=== PATIENT | male | born 1940 | race Caucasian/White ===

== ENCOUNTER → 2016-11-19 | Outpatient (CLI) | payer MEDICARE ==
[~2016-11-19] MED LIST: /PRAV20TA PO; ACET65TA PO; ASCO25TA PO; ASPI81TA PO; ASPI81TA45 OR; ASPI81TA7 PO; ASPI81TA85 PO; BENA25TA4 PO; BENTYL PO; BUDE3CAP PO; CARA1SUS PO; CIPR500T4 PO; CIPR500T89 PO; DYAZCA PO; FERR325T3 PO; FLAG500T PO; IRON PO; LISI5TAB PO; LISIPOW PO; LOPR50TA PO; MAXI0.1S3 OU; MAXZTA PO; METR500IV PO; MIRA255PW PO; MIRA33504 PO; MULTLIQ7 PO; MYLI40DR PO; OMEP40CA2 PO; OMEPPOW18 PO; OSCAL D PO; OXYC-208 PO; PENT500C4 PO; PRAV10TA4 OR; PRAV1TAB39 PO; PRAVASTATIN PO; PRED1TAB32 PO; PRED20TAB PO; PRED50TA2 PO; PRIL20CA PO; PRIL40CA PO; REMICADE IV; SIME80TA PO; TRIA37.53 PO; TRIA75TA PO; TYLE325T5 PO; VITA100087 PO; VITA500C24 PO; ZEST5TAB PO; [UNRECOGNIZED DRUG - OTHER] PO
== END ==
LOC: M SMT 10:38
PROVIDERS: ATTEND Nurse Practitioner Women's Health
DX: Z85.46 Personal history of malignant neoplasm of prostate (principal)

== ENCOUNTER → 2016-12-03 | Outpatient (CLI) | payer MEDICARE ==
--- NOTE | 2016-12-03 14:38 | REP ---
Whole body radionuclide bone scan: History: Elevated liver function studies. History of prostate carcinoma. Comparison whole body bone scan is from January 28, 2013. Technique: 21.8 mCi technetium 99m MDP is injected and standard whole body imaging is acquired. Scintigraphic findings: There is a normal distribution of skeletal tracer with uptake in bilateral kidneys and in the urinary bladder. There is arthritic uptake in the left mid foot joints. This is a little more prominent but not new when compared with the prior 2013 bone scan. The prior bone scan showed osteoarthritic facet uptake in the cervical spine and degenerative uptake at the thoracolumbar junction which are both resolved scintigraphically. There was increased uptake in the right manubrial clavicular articulations. This is also resolved. There is no evidence of skeletal metastatic disease. Impression: No evidence of bony metastasis. Signed by Omero Joseph MD 12/03/2016 04:25 P
== END ==
LOC: M RAD 10:23
PROVIDERS: ATTEND Nurse Practitioner Women's Health
DX: Z85.46 Personal history of malignant neoplasm of prostate (principal)
CPT/HCPCS: 78306; A9503

== ENCOUNTER → 2016-12-06 | Outpatient (CLI) | payer MEDICARE ==
[~2016-12-06] MED LIST changes: +ISOVUE-370 76% 100ML VIAL (Q9967) As Ordered ONE
--- NOTE | 2016-12-06 16:27 | REP ---
Chest two views HISTORY: Neoplasm Comparison: 02/19/2013 The lungs are clear. The heart is normal in size. The pulmonary vasculature is normal in appearance. The bony structure is intact. IMPRESSION: No acute disease. Signed by Jack Wilkinson MD 12/06/2016 04:18 P
--- NOTE | 2016-12-06 17:58 | REP ---
CT abdomen pelvis multiphasic scanning: Scanning is initially performed without IV contrast. This is followed by biphasic IV contrast enhanced scanning for. There is no bowel contrast. Comparison is 02/20/2016. The visualized lung paulson are clear. The hepatic parenchyma, pancreas and spleen are normal size, homogeneous and unremarkable on all phases of the study. There is a small gallbladder calculus in the gallbladder neck. There is no gallbladder distension or biliary duct dilatation. This is unchanged from the prior study. The adrenals are unremarkable. There are multiple parapelvic cysts in the kidneys bilaterally, unchanged. There is no hydronephrosis. No renal masses are identified. The abdominal aorta is unremarkable. There is no retroperitoneal/periaortic adenopathy. There is marked diastases of the rectus abdominus with mild herniation of omentum and bowel as previously. There are surgical clips in the abdominal right lower quadrant, as previously, this patient with history of small bowel surgery. There is no bowel distension or obstruction. There is no ascites. There is no mesenteric adenopathy. Pelvis: The pelvic bowel loops are unremarkable. There is no ascites or adenopathy. The bladder is unremarkable. The seminal vesicles are unremarkable. A few prostatic of this are incidentally noted. There is no ascites. There are no lytic, blastic or destructive skeletal changes of the lumbar spine or pelvis. Impression: No lymphadenopathy, metastatic disease or ascites. There is a fixed hiatal hernia, unchanged. Large broad ventral hernia, unchanged. Cholelithiasis, unchanged. Surgical clips in the abdominal right lower quadrant, unchanged. Signed by Mark Srinivasan MD 12/06/2016 05:49 P
== END ==
LOC: M RAD 15:56
PROVIDERS: ATTEND Nurse Practitioner Women's Health
DX: K43.9 Ventral hernia without obstruction or gangrene (principal); K80.20 Calculus of gallbladder without cholecystitis without obstruction; R97.21 Rising PSA following treatment for malignant neoplasm of prostate; Z85.46 Personal history of malignant neoplasm of prostate
CPT/HCPCS: 71020; 74178; Q9967

== ENCOUNTER → 2016-12-31 | Outpatient (CLI) | payer MEDICARE ==
[~2016-12-31] MED LIST changes: -ISOVUE-370 76% 100ML VIAL (Q9967) As Ordered ONE
== END ==
LOC: M SMT 09:23
PROVIDERS: ATTEND Urology
DX: Z85.46 Personal history of malignant neoplasm of prostate (principal)

== ENCOUNTER → 2017-04-08 | Outpatient (CLI) | payer MEDICARE ==
[2017-04-08 14:00] LABS: MEAN CORPUSCULAR HEMOGLOBIN 30.3 pg (27.0-33.0); MEAN CORPUSCULAR HGB CONC 33.1 g/dl (32.0-36.5); MEAN CORPUSCULAR VOLUME 91.4 fl (80.0-96.0); RED CELL DISTRIBUTION WIDTH 13.8 % (11.5-14.5); WHITE BLOOD COUNT 7.1 K/mm3 (4.0-10.0)
[2017-04-08 14:17] LABS: ALBUMIN 3.7 GM/DL (3.2-5.2); ALBUMIN/GLOBULIN RATIO 1.28 (1.00-1.93); ALKALINE PHOSPHATASE 75 U/L (45-117); ALT/SGPT 34 U/L (12-78); ANION GAP 5 MEQ/L (8-16); AST/SGOT 23 U/L (15-37); BILIRUBIN,TOTAL 0.3 MG/DL (0.2-1.0); BLOOD UREA NITROGEN 22 MG/DL (7-18); CALCIUM LEVEL 8.9 MG/DL (8.8-10.2); CARBON DIOXIDE LEVEL 31 MEQ/L (21-32); CHLORIDE LEVEL 105 MEQ/L (98-107); CREATININE FOR GFR 0.86 MG/DL (0.70-1.30); GLOMERULAR FILTRATION RATE > 60.0 (>42); GLUCOSE, FASTING 99 MG/DL (83-110); POTASSIUM SERUM 4.8 MEQ/L (3.5-5.1); SODIUM LEVEL 141 MEQ/L (136-145); TOTAL PROTEIN 6.6 GM/DL (6.4-8.2)
== END ==
LOC: M SMT 09:08
PROVIDERS: ATTEND Physician Assistant Medical
DX: K50.00 Crohn's disease of small intestine without complications (principal)

== ENCOUNTER → 2017-06-27 | Outpatient (CLI) | payer MEDICARE | LOC: M SMT 13:21 | PROVIDERS: ATTEND Urology | DX: Z85.46 Personal history of malignant neoplasm of prostate (principal) ==

== ENCOUNTER → 2018-01-13 | Outpatient (CLI) | payer MEDICARE ==
[2018-01-13 14:24] LABS: PROSTATIC SPECIFIC AG MONITOR 0.03 NG/ML (< 4.0)
== END ==
LOC: M SMT 09:54
DX: Z85.46 Personal history of malignant neoplasm of prostate (principal)
CPT/HCPCS: 84153

== ENCOUNTER → 2018-04-07 | Outpatient (CLI) | payer OTHER ==
[2018-04-07 12:32] LABS: HEMATOCRIT 43.8 % (42.0-52.0); HEMOGLOBIN 14.6 g/dl (13.5-17.5); MEAN CORPUSCULAR HEMOGLOBIN 29.5 pg (27.0-33.0); MEAN CORPUSCULAR HGB CONC 33.3 g/dl (32.0-36.5); MEAN CORPUSCULAR VOLUME 88.5 fl (80.0-96.0); PLATELET COUNT, AUTOMATED 146 10^3/uL (150-450); RED BLOOD COUNT 4.95 10^6/uL (4.30-6.10); RED CELL DISTRIBUTION WIDTH 13.9 % (11.5-14.5)
[2018-04-07 13:40] LABS: ALBUMIN 3.8 GM/DL (3.2-5.2); ALBUMIN/GLOBULIN RATIO 1.15 (1.00-1.93); ALKALINE PHOSPHATASE 86 U/L (45-117); ALT/SGPT 35 U/L (12-78); ANION GAP 8 MEQ/L (8-16); AST/SGOT 39 U/L (7-37); BILIRUBIN,TOTAL 0.5 MG/DL (0.2-1.0); BLOOD UREA NITROGEN 18 MG/DL (7-18); CALCIUM LEVEL 9.3 MG/DL (8.8-10.2); CARBON DIOXIDE LEVEL 27 MEQ/L (21-32); CHLORIDE LEVEL 108 MEQ/L (98-107); CREATININE FOR GFR 0.92 MG/DL (0.70-1.30); GLOMERULAR FILTRATION RATE > 60.0 (>42); GLUCOSE, FASTING 93 MG/DL (70-100); SODIUM LEVEL 143 MEQ/L (136-145); TOTAL PROTEIN 7.1 GM/DL (6.4-8.2)
[2018-04-08 09:43] LABS: HEPATITIS B SURFACE ANTIGEN NEGATIVE (NEGATIVE)
[2018-04-09 14:13] LABS: QUANTIFERON GOLD TB Negative (Negative); TB Test (QFT) Antigen 0.04 IU/mL (.); TB Test (QFT) Antigen Minus Ni <0.01 IU/mL (.); TB Test (QFT) Mitogen 6.61 IU/mL (.); TB Test (QFT) Nil 0.05 IU/mL (.)
== END ==
LOC: M SMT 09:13
DX: K50.00 Crohn's disease of small intestine without complications (principal)
CPT/HCPCS: 80053

== ENCOUNTER → 2018-05-11 | Outpatient (CLI) | payer MEDICARE ==
[2018-05-11 14:26] LABS: HEMATOCRIT 41.6 % (42.0-52.0); HEMOGLOBIN 13.8 g/dl (13.5-17.5); MEAN CORPUSCULAR HEMOGLOBIN 29.6 pg (27.0-33.0); MEAN CORPUSCULAR HGB CONC 33.2 g/dl (32.0-36.5); MEAN CORPUSCULAR VOLUME 89.1 fl (80.0-96.0); PLATELET COUNT, AUTOMATED 151 10^3/uL (150-450); RED BLOOD COUNT 4.67 10^6/uL (4.30-6.10); RED CELL DISTRIBUTION WIDTH 13.9 % (11.5-14.5); WHITE BLOOD COUNT 7.9 10^3/uL (4.0-10.0)
[2018-05-11 15:40] LABS: ALBUMIN 3.7 GM/DL (3.2-5.2); ALBUMIN/GLOBULIN RATIO 1.23 (1.00-1.93); ALKALINE PHOSPHATASE 87 U/L (45-117); ALT/SGPT 32 U/L (12-78); AST/SGOT 23 U/L (7-37); BILIRUBIN,DIRECT 0.1 MG/DL (0.0-0.2); BILIRUBIN,TOTAL 0.4 MG/DL (0.2-1.0); TOTAL PROTEIN 6.7 GM/DL (6.4-8.2)
== END ==
LOC: M SMT 11:12
DX: K50.00 Crohn's disease of small intestine without complications (principal)
CPT/HCPCS: 80076

== ENCOUNTER 2018-12-18 06:23 | Day surgery (SDC) | payer MEDICARE ==
[~2018-12-18] VITALS: Ht 165.1 cm; Wt 79.8 kg
[~2018-12-18 06:23] MED LIST changes: +ASPI1TAB PO; +HUMI40KI2 SC; +LISI10TA4 PO; +MULT1TAB10 PO
[2018-12-18] MEDS ORDERED: NS 1,000 ML IV ONE (07:15)
[2018-12-18] MEDS ORDERED: PROPOFOL 200 MG/20 ML VIAL As Ordered ONE (07:16)
[2018-12-18] MEDS ORDERED: LIDOCAINE 2% INJ 100 MG/5 ML SDV (FOR ANES.) As Ordered ONE (07:16)
--- NOTE | 2018-12-18 08:03 | ROOR ---
Patient Name: Neil Elizabeth Procedure Date: 12/18/2018 7:28 AM Date of : 1940 Age: 78 Room: [facility] Gender: Male Note Status: Finalized Procedure: Colonoscopy Indications: High risk colon cancer surveillance: Personal history of colonic polyps, Incidental - Assess therapeutic response to therapy of Crohn's disease of the small bowel (on Humira) Providers: Sung DIEZ MD Referring MD: MARISOL KLEIN DO Requesting Provider: Medicines: Monitored Anesthesia Care Complications: No immediate complications. Procedure: Pre-Anesthesia Assessment: - The heart rate, respiratory rate, oxygen saturations, blood pressure, adequacy of pulmonary ventilation, and response to care were monitored throughout the procedure. The Colonoscope was introduced through the anus and advanced to the ileocolonic anastomosis. The colonoscopy was performed without difficulty. The patient tolerated the procedure well. The quality of the bowel preparation was good. Findings: The perianal and digital rectal examinations were normal. Retroflexion in the right colon was performed. There was evidence of a prior end-to-side colo-colonic anastomosis in the cecum. This was patent and was characterized by healthy appearing mucosa and the presence of no stomal ulceration. The anastomosis was traversed. Multiple medium-mouthed diverticula were found in the sigmoid colon. Internal hemorrhoids were found during retroflexion. The hemorrhoids were medium-sized. Localized mild inflammation characterized by altered vascularity was found at the anus and in the distal rectum. The oumou-terminal ileum appeared normal. Impression: - Patent end-to-side colo-colonic anastomosis, characterized by healthy appearing mucosa and no stomal ulceration. 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 - Mild sigmoid diverticulosis - The colon is otherwise normal. - The end to side portion of the oumou-terminal ileum for >10 cm and blind end at the ileocecal valve was normal. - No specimens collected. Recommendation: - Repeat colonoscopy in 5 years for surveillance. Sung Diez MD Sung DIEZ MD 12/18/2018 8:02:40 AM This report has been signed electronically. Number of Addenda: 0 Note Initiated On: 12/18/2018 7:28 AM Estimated Blood Loss: Estimated blood loss: none.
[2018-12-18 08:16] VITALS: BP 133/80
== END 2018-12-18 08:24 | disposition home or self-care (01) ==
LOC: M OPP 06:23
PROVIDERS: ATTEND Internal Medicine Gastroenterology
DX: Z86.010 Personal history of colon polyps (principal); Z98.0 Intestinal bypass and anastomosis status; K64.8 Other hemorrhoids; K62.7 Radiation proctitis; K57.30 Diverticulosis of large intestine without perforation or abscess without bleeding

== ENCOUNTER → 2019-01-05 | Outpatient (CLI) | payer MEDICARE | LOC: M SMT 09:32 | PROVIDERS: ATTEND Urology | DX: Z85.46 Personal history of malignant neoplasm of prostate (principal) ==

== ENCOUNTER → 2019-04-14 | Outpatient (CLI) | payer MEDICARE ==
[~2019-04-14] MED LIST changes: -/PRAV20TA PO; -ASCO25TA PO; -ASPI1TAB PO; -ASPI81TA PO; +ASPI81TA26 PO; +CHIL1CHW5 PO; +METR1INJ2 PO; -METR500IV PO; -MIRA255PW PO; +POLY1POW4 PO; +VITA1TAB23 PO
[2019-04-14 13:13] LABS: HEMATOCRIT 43.6 % (42.0-52.0); HEMOGLOBIN 14.2 g/dl (13.5-17.5); MEAN CORPUSCULAR HEMOGLOBIN 29.2 pg (27.0-33.0); MEAN CORPUSCULAR HGB CONC 32.6 g/dl (32.0-36.5); MEAN CORPUSCULAR VOLUME 89.7 fl (80.0-96.0); PLATELET COUNT, AUTOMATED 174 10^3/uL (150-450); RED BLOOD COUNT 4.86 10^6/uL (4.30-6.10); WHITE BLOOD COUNT 8.3 10^3/uL (4.0-10.0)
[2019-04-14 13:21] LABS: ALBUMIN 3.6 GM/DL (3.2-5.2); ALT/SGPT 31 U/L (12-78); BILIRUBIN,TOTAL 0.5 MG/DL (0.2-1.0); BLOOD UREA NITROGEN 20 MG/DL (7-18); CALCIUM LEVEL 9.2 MG/DL (8.8-10.2); CARBON DIOXIDE LEVEL 29 MEQ/L (21-32); CHLORIDE LEVEL 109 MEQ/L (98-107); CREATININE FOR GFR 0.88 MG/DL (0.70-1.30); GLOMERULAR FILTRATION RATE > 60.0 (>42); GLUCOSE, FASTING 93 MG/DL (70-100); POTASSIUM SERUM 5.1 MEQ/L (3.5-5.1); SODIUM LEVEL 146 MEQ/L (136-145)
[2019-04-14 13:39] LABS: HEPATITIS B SURFACE ANTIGEN NEGATIVE (NEGATIVE)
== END ==
LOC: M SMT 10:00
PROVIDERS: ATTEND Physician Assistant Medical
DX: K50.00 Crohn's disease of small intestine without complications (principal)

== ENCOUNTER → 2019-07-23 | Outpatient (CLI) | payer MEDICARE | LOC: M SMT 09:08 | PROVIDERS: ATTEND Nurse Practitioner Women's Health | DX: Z85.46 Personal history of malignant neoplasm of prostate (principal) ==

== ENCOUNTER → 2019-08-09 | Outpatient (REF) | payer MEDICARE | LOC: M SFHCPLAZ 13:58 | PROVIDERS: ATTEND Dermatology | DX: L57.0 Actinic keratosis (principal) ==

== ENCOUNTER → 2020-01-25 | Outpatient (CLI) | payer MEDICARE ==
[~2020-01-25] MED LIST changes: +OMEP40CA97 PO
== END ==
LOC: M LAB 09:36
PROVIDERS: ATTEND Nurse Practitioner Women's Health
DX: Z85.46 Personal history of malignant neoplasm of prostate (principal)

== ENCOUNTER → 2020-05-02 | Outpatient (CLI) | payer MEDICARE ==
[2020-05-02 10:27] LABS: HEMATOCRIT 43.3 % (42.0-52.0); HEMOGLOBIN 14.1 g/dl (13.5-17.5); MEAN CORPUSCULAR HEMOGLOBIN 29.2 pg (27.0-33.0); MEAN CORPUSCULAR HGB CONC 32.6 g/dl (32.0-36.5); MEAN CORPUSCULAR VOLUME 89.6 fl (80.0-96.0); PLATELET COUNT, AUTOMATED 168 10^3/uL (150-450); RED BLOOD COUNT 4.83 10^6/uL (4.30-6.10); WHITE BLOOD COUNT 7.2 10^3/uL (4.0-10.0)
[2020-05-02 10:54] LABS: ALBUMIN 3.5 GM/DL (3.2-5.2); ALT/SGPT 30 U/L (12-78); BILIRUBIN,TOTAL 0.5 MG/DL (0.2-1.0); BLOOD UREA NITROGEN 24 MG/DL (7-18); CALCIUM LEVEL 9.4 MG/DL (8.8-10.2); CARBON DIOXIDE LEVEL 29 MEQ/L (21-32); CHLORIDE LEVEL 106 MEQ/L (98-107); CREATININE FOR GFR 0.88 MG/DL (0.70-1.30); GLOMERULAR FILTRATION RATE > 60.0 (>35); GLUCOSE, FASTING 92 MG/DL (70-100); POTASSIUM SERUM 5.1 MEQ/L (3.5-5.1); SODIUM LEVEL 140 MEQ/L (136-145); TOTAL PROTEIN 6.8 GM/DL (6.4-8.2)
[2020-05-03 08:51] LABS: HEPATITIS B SURFACE ANTIGEN NEGATIVE (NEGATIVE)
== END ==
LOC: M LAB 09:38
PROVIDERS: ATTEND Physician Assistant Medical
DX: K50.00 Crohn's disease of small intestine without complications (principal)

== ENCOUNTER → 2020-08-02 | Outpatient (CLI) | payer MEDICARE ==
[~2020-08-02] MED LIST changes: +ASCO250T20 PO; -VITA1TAB23 PO
== END ==
LOC: M LAB 07:40
PROVIDERS: ATTEND Nurse Practitioner Women's Health
DX: Z85.46 Personal history of malignant neoplasm of prostate (principal)

== ENCOUNTER → 2020-10-17 | Outpatient (REF) | payer MEDICARE | LOC: M LAB REF 17:25 | PROVIDERS: ATTEND Dermatology | DX: D04.5 Carcinoma in situ of skin of trunk (principal) ==

== ENCOUNTER → 2020-11-28 | Outpatient (REF) | payer MEDICARE ==
[~2020-11-28] MED LIST changes: +LISI10TA22 PO; -LISI10TA4 PO
== END ==
LOC: M LAB REF 14:06
PROVIDERS: ATTEND Dermatology
DX: L90.5 Scar conditions and fibrosis of skin (principal); L57.8 Other skin changes due to chronic exposure to nonionizing radiation

== ENCOUNTER → 2021-01-30 | Outpatient (CLI) | payer MEDICARE | LOC: M LAB 07:24 | PROVIDERS: ATTEND Nurse Practitioner Women's Health | DX: Z85.46 Personal history of malignant neoplasm of prostate (principal) ==

== ENCOUNTER → 2021-05-14 | Outpatient (CLI) | payer MEDICARE ==
[~2021-05-14] MED LIST changes: +OMEP40CA4 PO; -OMEP40CA97 PO
== END ==
LOC: M LAB 07:24
PROVIDERS: ATTEND Physician Assistant Medical
DX: K50.00 Crohn's disease of small intestine without complications (principal)

== ENCOUNTER → 2021-08-06 | Outpatient (CLI) | payer MEDICARE | LOC: M LAB 07:14 | PROVIDERS: ATTEND Nurse Practitioner Women's Health | DX: Z85.46 Personal history of malignant neoplasm of prostate (principal) ==

== ENCOUNTER → 2022-02-06 | Outpatient (CLI) | payer MEDICARE | LOC: M LAB 06:55 | PROVIDERS: ATTEND Nurse Practitioner Women's Health | DX: Z85.46 Personal history of malignant neoplasm of prostate (principal) ==

== ENCOUNTER → 2022-03-18 | Outpatient (REF) | payer MEDICARE | LOC: M SFHCDERM 17:08 | PROVIDERS: ATTEND Physician Assistant | DX: L57.0 Actinic keratosis (principal) ==

== ENCOUNTER → 2022-06-03 | Outpatient (CLI) | payer MEDICARE ==
[2022-06-03 08:11] LABS: HEMATOCRIT 40.8 % (42.0-52.0); HEMOGLOBIN 13.4 g/dl (13.5-17.5); MEAN CORPUSCULAR HEMOGLOBIN 29.8 pg (27.0-33.0); MEAN CORPUSCULAR HGB CONC 32.8 g/dl (32.0-36.5); MEAN CORPUSCULAR VOLUME 90.9 fl (80.0-96.0); PLATELET COUNT, AUTOMATED 177 10^3/uL (150-450); RED BLOOD COUNT 4.49 10^6/uL (4.30-6.10); WHITE BLOOD COUNT 8.3 10^3/uL (4.0-10.0)
[2022-06-03 08:35] LABS: ALBUMIN 3.3 GM/DL (3.2-5.2); ALT/SGPT 24 U/L (12-78); BILIRUBIN,TOTAL 0.4 MG/DL (0.2-1.0); BLOOD UREA NITROGEN 24 MG/DL (7-18); CALCIUM LEVEL 8.9 MG/DL (8.8-10.2); CARBON DIOXIDE LEVEL 27 MEQ/L (21-32); CHLORIDE LEVEL 111 MEQ/L (98-107); CREATININE FOR GFR 1.03 MG/DL (0.70-1.30); GLOMERULAR FILTRATION RATE > 60.0 (>35); GLUCOSE, FASTING 100 MG/DL (70-100); POTASSIUM SERUM 4.5 MEQ/L (3.5-5.1); SODIUM LEVEL 145 MEQ/L (136-145); TOTAL PROTEIN 6.8 GM/DL (6.4-8.2)
[2022-06-03 11:51] LABS: HEPATITIS B SURFACE ANTIGEN NEGATIVE (NEGATIVE)
== END ==
LOC: M LAB 07:38
PROVIDERS: ATTEND Physician Assistant Medical
DX: K50.00 Crohn's disease of small intestine without complications (principal)

== ENCOUNTER → 2022-07-16 | Outpatient (CLI) | payer MEDICARE ==
[2022-07-16 07:22] LABS: HEMATOCRIT 43.1 % (42.0-52.0); HEMOGLOBIN 14.1 g/dl (13.5-17.5); MEAN CORPUSCULAR HEMOGLOBIN 29.5 pg (27.0-33.0); MEAN CORPUSCULAR HGB CONC 32.7 g/dl (32.0-36.5); MEAN CORPUSCULAR VOLUME 90.2 fl (80.0-96.0); PLATELET COUNT, AUTOMATED 180 10^3/uL (150-450); RED BLOOD COUNT 4.78 10^6/uL (4.30-6.10); WHITE BLOOD COUNT 6.6 10^3/uL (4.0-10.0)
[2022-07-16 07:51] LABS: PERCENT SATURATION 22.5 % (19.7-50.0)
[2022-07-16 08:57] LABS: FOLATE 18.1 NG/ML
== END ==
LOC: M LAB 06:43
PROVIDERS: ATTEND Physician Assistant Medical
DX: D64.9 Anemia, unspecified (principal); K50.00 Crohn's disease of small intestine without complications

== ENCOUNTER → 2022-08-05 | Outpatient (CLI) | payer MEDICARE | LOC: M LAB 07:10 | PROVIDERS: ATTEND Nurse Practitioner Women's Health | DX: Z85.46 Personal history of malignant neoplasm of prostate (principal) ==

== ENCOUNTER → 2022-09-25 | Outpatient (REF) | payer MEDICARE | LOC: M SFHCDERM 09:07 | PROVIDERS: ATTEND Physician Assistant | DX: L57.0 Actinic keratosis (principal) ==

== ENCOUNTER → 2022-11-19 | Outpatient (REF) | payer MEDICARE | LOC: M SFHCDERM 13:52 | PROVIDERS: ATTEND Physician Assistant | DX: D22.9 Melanocytic nevi, unspecified (principal) ==

== ENCOUNTER → 2023-02-04 | Outpatient (CLI) | payer MEDICARE | LOC: M LAB 06:16 | PROVIDERS: ATTEND Nurse Practitioner Women's Health | DX: Z85.46 Personal history of malignant neoplasm of prostate (principal) ==

== ENCOUNTER → 2023-11-18 | Outpatient (REF) | payer MEDICARE, OTHER ==
[~2023-11-18] MED LIST changes: +CEPH500C PO
== END ==
LOC: M SFHCDERM 15:59
PROVIDERS: ATTEND Physician Assistant
DX: C44.329 Squamous cell carcinoma of skin of other parts of face (principal)

== ENCOUNTER → 2024-02-04 | Outpatient (CLI) | payer MEDICARE, OTHER ==
[~2024-02-04] MED LIST changes: +PRAV20TA2 PO; +THERTAB52 PO
== END ==
LOC: M LAB 06:32
PROVIDERS: ATTEND Physician Assistant
DX: Z85.46 Personal history of malignant neoplasm of prostate (principal)

== ENCOUNTER 2024-02-13 11:18 | Day surgery (SDC) | payer MEDICARE ==
[~2024-02-13] VITALS: Ht 167.6 cm; Wt 78.3 kg
[2024-02-13] MEDS: NS 1,000 ML IV ONE (12:30)
[2024-02-13] MEDS ORDERED: propofoL 200 MG/20 ML VIAL As Ordered ONE (13:04)
[2024-02-13 14:49] VITALS: BP 128/74; TEMP 98; O2SAT 97
== END 2024-02-13 14:49 | disposition home or self-care (01) ==
LOC: M OPP 11:18
PROVIDERS: ATTEND Internal Medicine Gastroenterology
DX: K64.8 Other hemorrhoids (principal); K62.7 Radiation proctitis; D12.8 Benign neoplasm of rectum; K63.89 Other specified diseases of intestine; Z98.0 Intestinal bypass and anastomosis status; K50.10 Crohn's disease of large intestine without complications; Z79.02 Long term (current) use of antithrombotics/antiplatelets; Z79.2 Long term (current) use of antibiotics; Z79.620 Long term (current) use of immunosuppressive biologic; Z79.890 Hormone replacement therapy; Z79.899 Other long term (current) drug therapy

== ENCOUNTER 2024-07-14 16:16 | Observation (INO) | payer MEDICARE, OTHER ==
[~2024-07-14] VITALS: Ht 165.1 cm; Wt 76.5 kg
[~2024-07-14 16:16] MED LIST changes: -HYDR12CA PO; -LISI40TA4 PO; -MAGN500T2 PO; -METO1TAB87 PO; -MOXI1TAB PO; -OMEP-173 PO
[2024-07-14 18:02] LABS: BASO # 0.1 10^3/uL (0.0-0.2); BASO % 0.4 % (0.0-1.0); EOS # 0.3 10^3/uL (0.0-0.5); EOS % 2.5 % (0.0-3.0); HEMOGLOBIN 13.4 g/dl (13.5-17.5); LYMPH # 2.6 10^3/uL (1.5-5.0); LYMPH % 20.9 % (24.0-44.0); MEAN CORPUSCULAR HEMOGLOBIN 29.9 pg (27.0-33.0); MEAN CORPUSCULAR HGB CONC 33.5 g/dl (32.0-36.5); MEAN CORPUSCULAR VOLUME 89.3 fl (80.0-96.0); MONO # 1.1 10^3/uL (0.0-0.8); MONO % 9.2 % (2.0-8.0); NEUTROPHILS # 8.2 10^3/uL (1.5-8.5); NEUTROPHILS % 66.6 % (36.0-66.0); PLATELET COUNT, AUTOMATED 201 10^3/uL (150-450); RED BLOOD COUNT 4.48 10^6/uL (4.30-6.10); WHITE BLOOD COUNT 12.2 10^3/uL (4.0-10.0)
[2024-07-14 18:25] LABS: LIPASE 25 U/L (12-53)
[2024-07-14 18:28] LABS: ALBUMIN 3.3 G/DL (3.2-5.2); ALKALINE PHOSPHATASE 103 U/L (46-116); ALT/SGPT 20 U/L (7.0-40); AST/SGOT 29 U/L (<34); BILIRUBIN,DIRECT 0.1 MG/DL (<0.4); BILIRUBIN,TOTAL 0.5 MG/DL (0.3-1.2); BLOOD UREA NITROGEN 28 MG/DL (9-23); CALCIUM LEVEL 9.2 MG/DL (8.3-10.6); CARBON DIOXIDE LEVEL 28 MMOL/L (20-31); CHLORIDE LEVEL 103 MMOL/L (98-107); GLOMERULAR FILTRATION RATE > 60.0 (>35); GLUCOSE, FASTING 97 MG/DL (74-106); POTASSIUM SERUM 4.4 MMOL/L (3.5-5.1); SODIUM LEVEL 138 MMOL/L (136-145); TOTAL PROTEIN 7.1 G/DL (5.7-8.2)
[2024-07-14] MEDS: PIPERACILLIN/TAZOBACTAM SOD 4.5 GM in D5W MINI-BAG PLUS 50 ML IV ONE (20:10)
[2024-07-14] MEDS ORDERED: LISI40TA4 PO (21:07)
[2024-07-14] MEDS ORDERED: HYDR12CA PO (21:07)
[2024-07-14] MEDS ORDERED: OMEP-173 PO (21:07)
[2024-07-14] MEDS ORDERED: HOME MED LIST COMPLETE! XX SCH (21:10)
[2024-07-14] MEDS: MORPHINE 2 MG/ML 1ML VIAL IV ONE (21:41)
[2024-07-14] MEDS: hydrALAZINE 20MG/ML 1ML VIAL IV STA (21:41)
[2024-07-14] MEDS ORDERED: MOM 30ML SUSPENSION UDC PO PRN (21:55)
[2024-07-14] MEDS ORDERED: ACETAMINOPHEN TAB 650MG DOSE (2X325MG) PO PRN (21:55)
[2024-07-14] MEDS: lisinopriL 40MG TAB PO SCH (22:42)
[2024-07-14] MEDS: NS 1,000 ML IV SCH (22:42)
[2024-07-14] MEDS: hydroCHLOROthiazide 12.5 MG CAPSULE PO SCH (22:42)
[2024-07-14 23:03] VITALS: BP 143/68; TEMP 97.2; O2SAT 95
[2024-07-14] MEDS: MORPHINE 2 MG/ML 1ML VIAL IV PRN (23:16)
[2024-07-15 03:21] VITALS: BP 163/72; TEMP 97.2; O2SAT 97
[2024-07-15] MEDS: hydrALAZINE 20MG/ML 1ML VIAL IV PRN (03:37)
[2024-07-15 06:31] LABS: HEMATOCRIT 41.2 % (42.0-52.0); HEMOGLOBIN 13.6 g/dl (13.5-17.5); MEAN CORPUSCULAR VOLUME 90.7 fl (80.0-96.0); PLATELET COUNT, AUTOMATED 200 10^3/uL (150-450); RED BLOOD COUNT 4.54 10^6/uL (4.30-6.10)
[2024-07-15 07:01] LABS: ALBUMIN 3.2 G/DL (3.2-5.2); ALKALINE PHOSPHATASE 100 U/L (46-116); ALT/SGPT 20 U/L (7.0-40); AST/SGOT 21 U/L (<34); BILIRUBIN,TOTAL 0.8 MG/DL (0.3-1.2); BLOOD UREA NITROGEN 23 MG/DL (9-23); CALCIUM LEVEL 9.3 MG/DL (8.3-10.6); CARBON DIOXIDE LEVEL 28 MMOL/L (20-31); CHLORIDE LEVEL 103 MMOL/L (98-107); CREATININE FOR GFR 1.02 MG/DL (0.70-1.30); GLOMERULAR FILTRATION RATE > 60.0 (>35); GLUCOSE, FASTING 106 MG/DL (74-106); POTASSIUM SERUM 4.1 MMOL/L (3.5-5.1); SODIUM LEVEL 138 MMOL/L (136-145); TOTAL PROTEIN 6.7 G/DL (5.7-8.2)
[2024-07-15 08:25] LABS: MAGNESIUM LEVEL 1.6 MG/DL (1.8-2.4)
[2024-07-15 08:27] VITALS: BP 144/63; TEMP 97.8; O2SAT 95
[2024-07-15 09:14] VITALS: BP 136/60; O2SAT 96
[2024-07-15] MEDS: DOCUSATE SODIUM 100MG CAPSULE PO SCH (09:14)
[2024-07-15] MEDS: ENOXAPARIN 40MG/0.4ML SYRINGE (J1650 PER 10MG) SC SCH (09:14)
[2024-07-15] MEDS: PRAVASTATIN 20 MG TAB PO SCH (09:15)
[2024-07-15] MEDS: OMEPRAZOLE 20MG CAP PO SCH (09:15)
[2024-07-15 09:24] VITALS: BP 144/63
[2024-07-15] MEDS: METOPROLOL TART 25 MG TABLET PO SCH (09:24)
[2024-07-15] MEDS: MAG SULF 1GM/100ML (MAG RUN) 1 GM in IV 1 EA IV SCH (09:24)
[2024-07-15] MEDS ORDERED: MOXI1TAB PO (09:39)
[2024-07-15] MEDS ORDERED: METO1TAB87 PO (09:39)
[2024-07-15] MEDS ORDERED: MAGN500T2 PO (09:40)
== END 2024-07-15 11:28 | disposition home or self-care (01) ==
LOC: M ED 16:16 → INTOOBSV 21:52 → M ED INP 21:52 → M PCU 22:54
PROVIDERS: ADMIT Family Medicine; ATTEND Family Medicine
DX: K81.0 Acute cholecystitis (principal); I16.0 Hypertensive urgency; E83.42 Hypomagnesemia; I10 Essential (primary) hypertension; E78.5 Hyperlipidemia, unspecified; K50.90 Crohn's disease, unspecified, without complications; K21.9 Gastro-esophageal reflux disease without esophagitis; Z79.899 Other long term (current) drug therapy
CPT/HCPCS: 36415; 74176; 80048; 80053; 80076; 81001; 83690; 83735; 85025; 85027; 93005; 93041; 96361; 96365; 96372; 96375; 96376; 99285; G0378; J0360; J1650; J2543; J3475

== ENCOUNTER → 2024-07-14 | Outpatient (REF) | payer MEDICARE, OTHER ==
[~2024-07-14] MED LIST changes: +HYDR12CA PO; +LISI40TA4 PO; +MAGN500T2 PO; +METO1TAB87 PO; +MOXI1TAB PO; +OMEP-173 PO
== END ==
LOC: M SFHCDERM 17:42
PROVIDERS: ATTEND Physician Assistant
DX: C44.41 Basal cell carcinoma of skin of scalp and neck (principal); L57.0 Actinic keratosis

== ENCOUNTER → 2024-08-10 | Outpatient (CLI) | payer MEDICARE ==
[~2024-08-10] MED LIST changes: +HYDR12CA PO; +LISI40TA4 PO; +MAGN500T2 PO; +METO1TAB87 PO; +MOXI1TAB PO; +OMEP-173 PO
== END ==
LOC: M LAB 06:06
PROVIDERS: ATTEND Physician Assistant
DX: Z85.46 Personal history of malignant neoplasm of prostate (principal)

== ENCOUNTER → 2024-11-02 | Outpatient (REF) | payer MEDICARE ==
[~2024-11-02] MED LIST changes: +eligard
== END ==
LOC: M LAB REF 09:54
PROVIDERS: ATTEND Physician Assistant Medical
DX: R19.7 Diarrhea, unspecified (principal)

== ENCOUNTER → 2024-11-03 | Outpatient (CLI) | payer MEDICARE ==
[2024-11-05 14:28] LABS: QuantiFERON-TB Gold Plus NEGATIVE (NEGATIVE)
== END ==
LOC: M LAB 06:13
PROVIDERS: ATTEND Physician Assistant Medical
DX: K50.00 Crohn's disease of small intestine without complications (principal); Z11.59 Encounter for screening for other viral diseases

== ENCOUNTER → 2025-01-05 | Outpatient (CLI) | payer MEDICARE ==
[2025-01-05 07:31] LABS: BASO # 0.1 10^3/uL (0.0-0.2); EOS # 0.3 10^3/uL (0.0-0.5); EOS % 4.2 % (0.0-3.0); HEMATOCRIT 42.6 % (42.0-52.0); HEMOGLOBIN 13.8 g/dl (13.5-17.5); LYMPH # 1.6 10^3/uL (1.5-5.0); LYMPH % 23.1 % (24.0-44.0); MEAN CORPUSCULAR HEMOGLOBIN 28.2 pg (27.0-33.0); MEAN CORPUSCULAR HGB CONC 32.4 g/dl (32.0-36.5); MEAN CORPUSCULAR VOLUME 87.1 fl (80.0-96.0); MONO # 0.6 10^3/uL (0.0-0.8); MONO % 8.5 % (2.0-8.0); NEUTROPHILS # 4.4 10^3/uL (1.5-8.5); NEUTROPHILS % 62.6 % (36.0-66.0); PLATELET COUNT, AUTOMATED 230 10^3/uL (150-450); RED BLOOD COUNT 4.89 10^6/uL (4.30-6.10); WHITE BLOOD COUNT 7.1 10^3/uL (4.0-10.0)
[2025-01-05 07:53] LABS: BLOOD UREA NITROGEN 25 MG/DL (9-23); CALCIUM LEVEL 9.3 MG/DL (8.3-10.6); CARBON DIOXIDE LEVEL 28 MMOL/L (20-31); CHLORIDE LEVEL 104 MMOL/L (98-107); CREATININE FOR GFR 0.97 MG/DL (0.70-1.30); GLOMERULAR FILTRATION RATE > 60.0 (>35); GLUCOSE, FASTING 105 MG/DL (74-106); POTASSIUM SERUM 4.8 MMOL/L (3.5-5.1); SODIUM LEVEL 142 MMOL/L (136-145)
== END ==
LOC: M LAB 06:54
PROVIDERS: ATTEND Internal Medicine Clinical Cardiac Electrophysiology
DX: I48.91 Unspecified atrial fibrillation (principal); Z79.899 Other long term (current) drug therapy

== ENCOUNTER → 2025-01-25 | Outpatient (REF) | payer MEDICARE | LOC: M LABWUC 16:48 | PROVIDERS: ATTEND Physician Assistant | DX: Z85.46 Personal history of malignant neoplasm of prostate (principal) ==

== ENCOUNTER → 2025-02-18 | Outpatient (CLI) | payer MEDICARE ==
[~2025-02-18] MED LIST changes: +DILT120C89 PO; +ELIQ5TAB PO; +METO25TA4 PO
[2025-02-18 17:37] LABS: BASO % 0.5 % (0.0-1.0); EOS # 1.7 10^3/uL (0.0-0.5); EOS % 18.8 % (0.0-3.0); HEMATOCRIT 38.6 % (42.0-52.0); HEMOGLOBIN 12.2 g/dl (13.5-17.5); LYMPH # 2.7 10^3/uL (1.5-5.0); LYMPH % 30.4 % (24.0-44.0); MEAN CORPUSCULAR HEMOGLOBIN 28.6 pg (27.0-33.0); MEAN CORPUSCULAR HGB CONC 31.6 g/dl (32.0-36.5); MEAN CORPUSCULAR VOLUME 90.6 fl (80.0-96.0); MONO # 0.8 10^3/uL (0.0-0.8); MONO % 8.8 % (2.0-8.0); NEUTROPHILS # 3.6 10^3/uL (1.5-8.5); PLATELET COUNT, AUTOMATED 157 10^3/uL (150-450); RED BLOOD COUNT 4.26 10^6/uL (4.30-6.10)
[2025-02-18 18:03] LABS: ALBUMIN 3.2 G/DL (3.2-5.2); ALKALINE PHOSPHATASE 99 U/L (40-129); ALT/SGPT 19 U/L (7.0-40); AST/SGOT 22 U/L (<34); BILIRUBIN,TOTAL 0.3 MG/DL (0.3-1.2); BLOOD UREA NITROGEN 19 MG/DL (9-23); CALCIUM LEVEL 8.8 MG/DL (8.3-10.6); CARBON DIOXIDE LEVEL 29 MMOL/L (20-31); CHLORIDE LEVEL 107 MMOL/L (98-107); CREATININE FOR GFR 0.97 MG/DL (0.70-1.30); GLOMERULAR FILTRATION RATE > 60.0 (>35); GLUCOSE, FASTING 123 MG/DL (74-106); POTASSIUM SERUM 4.2 MMOL/L (3.5-5.1); SODIUM LEVEL 143 MMOL/L (136-145); TOTAL PROTEIN 6.4 G/DL (5.7-8.2)
[2025-02-21 06:54] LABS: WHITE BLOOD COUNT 8.9 10^3/uL (4.0-10.0)
== END ==
LOC: M WUC 13:44
PROVIDERS: ATTEND Family Medicine
DX: I48.0 Paroxysmal atrial fibrillation (principal); E78.5 Hyperlipidemia, unspecified

== ENCOUNTER 2025-03-28 10:48 | Day surgery (SDC) | payer MEDICARE ==
[~2025-03-28] VITALS: Ht 162.6 cm; Wt 78.5 kg
[~2025-03-28 10:48] MED LIST changes: +LR 1,000 ML IV SCH; +PHENYLEPHRINE 2.5% OPHTH SOL 2ML OD SCH
[2025-03-28] MEDS: PHENYLEPHRINE 10% OPHTH SOL 5ML OD SCH (11:08)
[2025-03-28] MEDS: FLURBIPROFEN 0.03% OPHTH SOLN 2.5 ML OD SCH (11:08)
[2025-03-28] MEDS: CYCLOPENTOLATE 1% OPHTH SOLN 2ML BTL OD SCH (11:08)
[2025-03-28] MEDS: TETRACAINE 0.5% OPHTH SOLN 4ML OD SCH (11:09)
[2025-03-28] MEDS ORDERED: ENOX40IN3 SC (11:15)
[2025-03-28] MEDS ORDERED: fentaNYL 100 MCG/2 ML INJECTION As Ordered ONE (12:22)
[2025-03-28] MEDS: LIDOCAINE 1% SDV 5ML VIAL As Ordered ONE (12:23)
[2025-03-28] MEDS: CEFUROXIME 1MG/0.1ML INTRACAMERAL INJ As Ordered ONE (12:25)
[2025-03-28] MEDS ORDERED: LABETALOL 100MG/20ML VIAL As Ordered ONE (12:27)
[2025-03-28 12:50] VITALS: BP 177/84; TEMP 97.6; O2SAT 97
== END 2025-03-28 13:11 | disposition home or self-care (01) ==
LOC: M SDC 10:48
PROVIDERS: ATTEND Ophthalmology
DX: H25.11 Age-related nuclear cataract, right eye (principal); H57.03 Miosis; I48.91 Unspecified atrial fibrillation; I10 Essential (primary) hypertension; E78.00 Pure hypercholesterolemia, unspecified; K21.9 Gastro-esophageal reflux disease without esophagitis; Z79.899 Other long term (current) drug therapy; Z79.01 Long term (current) use of anticoagulants; Z85.828 Personal history of other malignant neoplasm of skin; Z85.46 Personal history of malignant neoplasm of prostate; Z92.3 Personal history of irradiation
CPT/HCPCS: 66982; J0697; J1920; J3010; V2632

== ENCOUNTER → 2025-03-30 | Outpatient (CLI) | payer MEDICARE ==
[~2025-03-30] MED LIST changes: +ENOX40IN3 SC; -LR 1,000 ML IV SCH; -PHENYLEPHRINE 2.5% OPHTH SOL 2ML OD SCH
[2025-03-30 14:16] LABS: APPEARANCE, URINE CLEAR (CLEAR); BACTERIA, URINE AUTO NEGATIVE (NEGATIVE); BILIRUBIN, URINE AUTO NEGATIVE (NEGATIVE); BLOOD, URINE BLOOD 1+ (NEGATIVE); COLOR, URINE YELLOW (YELLOW); GLUCOSE, URINE (UA) AUTO NEGATIVE (NEGATIVE); KETONE, URINE AUTO NEGATIVE (NEGATIVE); LEUKOCYTE ESTERASE, URINE AUTO NEGATIVE (NEGATIVE); NITRITE, URINE AUTO NEGATIVE (NEGATIVE); PROTEIN, URINE AUTO NEGATIVE (NEGATIVE); RBC, URINE AUTO 2 /HPF (0-3); SPECIFIC GRAVITY URINE AUTO 1.008 (1.002-1.035); SQUAMOUS EPITHELIAL CELL UR AU 0 /HPF (0-6); UROBILINOGEN, URINE AUTO 0.2 mg/dL (0.0-2.0); WBC, URINE AUTO 0 /HPF (0-3)
[2025-03-30 14:40] LABS: BASO # 0.1 10^3/uL (0.0-0.2); BASO % 0.6 % (0.0-1.0); EOS # 0.3 10^3/uL (0.0-0.5); EOS % 3.6 % (0.0-3.0); HEMOGLOBIN 13.1 g/dl (13.5-17.5); LYMPH # 2.3 10^3/uL (1.5-5.0); LYMPH % 27.4 % (24.0-44.0); MEAN CORPUSCULAR VOLUME 90.9 fl (80.0-96.0); MONO # 0.9 10^3/uL (0.0-0.8); MONO % 10.8 % (2.0-8.0); NEUTROPHILS # 4.8 10^3/uL (1.5-8.5); NEUTROPHILS % 57.1 % (36.0-66.0); PLATELET COUNT, AUTOMATED 177 10^3/uL (150-450); RED BLOOD COUNT 4.51 10^6/uL (4.30-6.10)
[2025-03-30 15:25] LABS: CALCIUM LEVEL 9.5 MG/DL (8.3-10.6); CHOLESTEROL RISK RATIO 3.65 (<5); CREATININE FOR GFR 0.9 MG/DL (0.70-1.30); GLOMERULAR FILTRATION RATE 83.7 (>35); HDL CHOLESTEROL 51.5 MG/DL (>40); LDL CHOLESTEROL 101.7 MG/DL (<100); NON-HDL-C 136.5 MG/DL; POTASSIUM SERUM 4.4 MMOL/L (3.5-5.1)
[2025-04-01 13:49] LABS: WHITE BLOOD COUNT 8.3 10^3/uL (4.0-10.0)
== END ==
LOC: M WUC 09:26
PROVIDERS: ATTEND Family Medicine
DX: E78.5 Hyperlipidemia, unspecified (principal); I10 Essential (primary) hypertension; I48.0 Paroxysmal atrial fibrillation

== ENCOUNTER 2025-05-18 11:20 | Inpatient (IN) | payer MEDICARE ==
[~2025-05-18] VITALS: Ht 167.6 cm; Wt 76.3 kg
[~2025-05-18 11:20] MED LIST changes: +LISI40TA10 PO; -LISI40TA4 PO; -PRAV20TA2 PO; +PRAV20TA78 PO
[2025-05-18 12:15] LABS: BASO # 0.1 10^3/uL (0.0-0.2); BASO % 0.5 % (0.0-1.0); EOS # 0.1 10^3/uL (0.0-0.5); EOS % 0.9 % (0.0-3.0); LYMPH # 2.0 10^3/uL (1.5-5.0); LYMPH % 18.4 % (24.0-44.0); MONO # 0.8 10^3/uL (0.0-0.8); MONO % 7.5 % (2.0-8.0); NEUTROPHILS # 7.8 10^3/uL (1.5-8.5); NEUTROPHILS % 72.2 % (36.0-66.0); PLATELET COUNT, AUTOMATED 234 10^3/uL (150-450)
[2025-05-18 12:42] LABS: ALT/SGPT 34.0 U/L (7.0-40); AST/SGOT 43.0 U/L (<34); CALCIUM LEVEL 9.2 MG/DL (8.3-10.6); CARBON DIOXIDE LEVEL 25.0 MMOL/L (20-31); CHLORIDE LEVEL 103.0 MMOL/L (98-107); CREATININE FOR GFR 1.06 MG/DL (0.70-1.30); GLOMERULAR FILTRATION RATE 68.8 (>35); POTASSIUM SERUM 4.3 MMOL/L (3.5-5.1); SODIUM LEVEL 141.0 MMOL/L (136-145)
[2025-05-18] MEDS ORDERED: ISOVUE-370 76% 100 ML VIAL As Ordered ONE (12:48)
[2025-05-18] MEDS ORDERED: KETO0.5S4 OU (12:55)
[2025-05-18] MEDS: dilTIAZem 25 MG/5 ML VIAL IV STA ×2 (12:57→13:54)
[2025-05-18] MEDS ORDERED: HOME MED LIST COMPLETE! XX SCH (13:00)
[2025-05-18 13:09] LABS: CK-MB VALUE MASS 2.9 NG/ML (<3.6)
[2025-05-18 13:14] LABS: THYROXINE (T4) 7.8 UG/DL (4.5-10.9)
[2025-05-18 13:19] LABS: CPK CREATINE PHOSPHOKINASE 60.0 U/L (46-171); MB/CK RELATIVE INDEX 4.83 (< OR =4)
[2025-05-18 13:29] LABS: INR 1.4
[2025-05-18 13:44] LABS: CK-MB VALUE MASS 3.4 NG/ML (<3.6)
[2025-05-18 13:46] LABS: CPK CREATINE PHOSPHOKINASE 73.0 U/L (46-171); MB/CK RELATIVE INDEX 4.65 (< OR =4)
[2025-05-18] MEDS: FUROSEMIDE 40 MG/4 ML VIAL IV ONE (15:06)
[2025-05-18] MEDS: AZITHROMYCIN 250 MG TABLET PO ONE (15:06)
[2025-05-18] MEDS: cefTRIAXone SOD 1 GM in DEXTROSE 5% (D5W) ADV/MINI-BAG 50 ML IV ONE (15:07)
[2025-05-18] MEDS ORDERED: **hydrALAZINE HCL** 25 MG TAB PO STA (16:05)
[2025-05-18 18:00] VITALS: BP 182/90; TEMP 97.2; O2SAT 93
[2025-05-18] MEDS ORDERED: MAGNESIUM OXIDE 400 MG TAB PO SCH (18:00)
[2025-05-18] MEDS: dilTIAZem 30 MG TAB PO SCH (18:16)
[2025-05-18 18:21] LABS: MAGNESIUM LEVEL 1.5 MG/DL (1.8-2.4)
[2025-05-18 19:31] VITALS: BP 124/84; TEMP 97.6; O2SAT 90
[2025-05-18] MEDS: MAG SULF 1GM/100ML (MAG RUN) 1 GM in IV 1 EA IV ONE (20:37)
[2025-05-18] MEDS: APIXABAN 5 MG TAB PO SCH (20:37)
[2025-05-18 20:39] VITALS: BP 143/78
[2025-05-18] MEDS ORDERED: dilTIAZem 120 MG **CD** CAPSULE PO SCH (21:00)
[2025-05-18 21:21] VITALS: BP 148/67; O2SAT 90
[2025-05-18] MEDS: DOXYCYCLINE HYCLATE 100 MG in DEXTROSE 5% (D5W) MINI-BAG PLU 100 ML IV SCH (21:52)
[2025-05-18 23:39] VITALS: BP 124/78; TEMP 98; O2SAT 90
[2025-05-19] VITALS (7 sets, daily range): BP systolic 121–158; BP diastolic 65–97; TEMP 96.9–98.2; O2SAT 90–95
[2025-05-19 07:02] LABS: PLATELET COUNT, AUTOMATED 224 10^3/uL (150-450)
[2025-05-19 07:42] LABS: ALT/SGPT 30.0 U/L (7.0-40); AST/SGOT 32.0 U/L (<34); CALCIUM LEVEL 9.3 MG/DL (8.3-10.6); CARBON DIOXIDE LEVEL 27.0 MMOL/L (20-31); CHLORIDE LEVEL 103.0 MMOL/L (98-107); CREATININE FOR GFR 1.13 MG/DL (0.70-1.30); GLOMERULAR FILTRATION RATE 63.7 (>35); MAGNESIUM LEVEL 1.8 MG/DL (1.8-2.4); POTASSIUM SERUM 4.2 MMOL/L (3.5-5.1); SODIUM LEVEL 143.0 MMOL/L (136-145)
[2025-05-19] MEDS: METOPROLOL TART 12.5 MG PER 1/2 TAB PO SCH (08:29)
[2025-05-19] MEDS: PRAVASTATIN 20 MG TAB PO SCH (08:30)
[2025-05-19] MEDS: FUROSEMIDE 40 MG/4 ML VIAL IV SCH (08:30)
[2025-05-19] MEDS: OMEPRAZOLE 20MG CAP PO SCH (08:31)
[2025-05-19] MEDS: MULTIVITAMINS/MINERALS THERAP 1 TAB PO SCH (12:03)
[2025-05-19] MEDS: KETOROLAC 0.5% OPHTH SOLN OU SCH (12:16)
[2025-05-19] MEDS: cefTRIAXone SOD 1 GM in DEXTROSE 5% (D5W) ADV/MINI-BAG 50 ML IV SCH (15:49)
[2025-05-19] MEDS: FUROSEMIDE 40 MG/4 ML VIAL IV ONE (15:50)
[2025-05-19] MEDS: DOXYCYCLINE HYCLATE 100 MG TABLET PO SCH (21:21)
[2025-05-20 03:45] VITALS: BP 137/78; TEMP 97; O2SAT 93
[2025-05-20 07:02] LABS: PLATELET COUNT, AUTOMATED 241 10^3/uL (150-450)
[2025-05-20 07:31] LABS: ALT/SGPT 28.0 U/L (7.0-40); AST/SGOT 28.0 U/L (<34); CALCIUM LEVEL 9.3 MG/DL (8.3-10.6); CARBON DIOXIDE LEVEL 27.0 MMOL/L (20-31); CHLORIDE LEVEL 102.0 MMOL/L (98-107); CREATININE FOR GFR 1.14 MG/DL (0.70-1.30); GLOMERULAR FILTRATION RATE 63.0 (>35); MAGNESIUM LEVEL 1.5 MG/DL (1.8-2.4); POTASSIUM SERUM 4.4 MMOL/L (3.5-5.1); SODIUM LEVEL 143.0 MMOL/L (136-145)
[2025-05-20 08:03] VITALS: BP 137/94; TEMP 97.1; O2SAT 94
[2025-05-20 11:08] VITALS: BP 135/112; TEMP 97; O2SAT 95
[2025-05-20] MEDS: MAG SULF 1GM/100ML (MAG RUN) 1 GM in IV 1 EA IV ONE (11:11)
[2025-05-20 12:03] VITALS: BP 131/87
[2025-05-20] MEDS ORDERED: TOPR50TA PO (13:08)
[2025-05-20] MEDS ORDERED: TORS20TA2 PO (13:09)
[2025-05-20] MEDS ORDERED: RA M500C PO (13:10)
== END 2025-05-20 14:05 | disposition home or self-care (01) | DRG 291 ==
LOC: M ED 11:20 → M ED INP 11:21 → M PCU 17:38 → OBSVTOIN 05-19 15:28
PROVIDERS: ADMIT Student in an Organized Health Care Education/Training Program; ATTEND Student in an Organized Health Care Education/Training Program
PROC: B246ZZZ Ultrasonography of Right and Left Heart (ICD-10-PCS; principal; 2025-05-18)
DX: I11.0 Hypertensive heart disease with heart failure (principal); I50.23 Acute on chronic systolic (congestive) heart failure; J12.89 Other viral pneumonia; K50.90 Crohn's disease, unspecified, without complications; I48.19 Other persistent atrial fibrillation; J81.1 Chronic pulmonary edema; I47.10 Supraventricular tachycardia, unspecified; C61 Malignant neoplasm of prostate; G47.33 Obstructive sleep apnea (adult) (pediatric); E78.5 Hyperlipidemia, unspecified; Z79.01 Long term (current) use of anticoagulants; Z79.899 Other long term (current) drug therapy

== ENCOUNTER 2025-06-11 08:17 | Inpatient (IN) | payer MEDICARE ==
[~2025-06-11] VITALS: Ht 162.6 cm; Wt 79.1 kg
[~2025-06-11 08:17] MED LIST changes: +HYDR12.510 PO; -HYDR12CA PO; +KETO5DRO32 OU; +RA M500C PO; +TOPR50TA PO; +TORS20TA2 PO
[2025-06-11 09:49] LABS: VENOUS BASE EXCESS -3.4 (-2.0-2.0); VENOUS HCO3 20.6 MMOL/L (23.0-27.0); VENOUS O2 SATURATION 95.8 % (60.0-80.0); VENOUS PARTIAL PRESSURE CO2 34.2 mmHg (38.0-50.0); VENOUS PARTIAL PRESSURE O2 79.2 mmHg (30.0-50.0); VENOUS PH 7.397 UNITS (7.330-7.430); VENOUS STANDARD HCO3 21.7 MMOL/L; VENOUS TOTAL CO2 21.6 MMOL/L (24.0-28.0)
[2025-06-11 09:59] LABS: BASO # 0.1 10^3/uL (0.0-0.2); BASO % 0.5 % (0.0-1.0); EOS # 0.0 10^3/uL (0.0-0.5); EOS % 0.3 % (0.0-3.0); LYMPH # 1.6 10^3/uL (1.5-5.0); LYMPH % 11.1 % (24.0-44.0); MONO # 1.1 10^3/uL (0.0-0.8); MONO % 7.2 % (2.0-8.0); NEUTROPHILS # 11.9 10^3/uL (1.5-8.5); NEUTROPHILS % 80.4 % (36.0-66.0); PLATELET COUNT, AUTOMATED 175 10^3/uL (150-450)
[2025-06-11] MEDS: METOPROLOL 5 MG/5 ML VIAL IV SCH (09:59)
[2025-06-11] MEDS: METOPROLOL TART 25 MG TABLET PO ONE ×2 (10:00→12:40)
[2025-06-11 10:12] LABS: INR 1.42
[2025-06-11 12:03] LABS: ALT/SGPT 44.0 U/L (7.0-40); AST/SGOT 43.0 U/L (<34); CALCIUM LEVEL 9.0 MG/DL (8.3-10.6); CARBON DIOXIDE LEVEL 21.0 MMOL/L (20-31); CHLORIDE LEVEL 107.0 MMOL/L (98-107); CK-MB VALUE MASS 2.5 NG/ML (<3.6); CPK CREATINE PHOSPHOKINASE 52.0 U/L (46-171); CREATININE FOR GFR 1.59 MG/DL (0.70-1.30); GLOMERULAR FILTRATION RATE 42.3 (>35); MB/CK RELATIVE INDEX 4.8 (< OR =4); POTASSIUM SERUM 4.8 MMOL/L (3.5-5.1); SODIUM LEVEL 143.0 MMOL/L (136-145); THYROXINE (T4) 7.2 UG/DL (4.5-10.9)
[2025-06-11] MEDS ORDERED: ISOVUE-370 76% 100 ML VIAL As Ordered ONE (12:18)
[2025-06-11 14:16] LABS: CK-MB VALUE MASS 2.5 NG/ML (<3.6); CPK CREATINE PHOSPHOKINASE 73.0 U/L (46-171); MB/CK RELATIVE INDEX 3.42 (< OR =4)
[2025-06-11] MEDS: FUROSEMIDE 40 MG/4 ML VIAL IV ONE (14:51)
[2025-06-11] MEDS: DIGOXIN INJ 0.5 MG/2 ML AMP IV STA (15:11)
[2025-06-11] MEDS ORDERED: TORS20TA2 PO (16:12)
[2025-06-11] MEDS ORDERED: DILT120C78 PO (16:12)
[2025-06-11] MEDS ORDERED: AMIO200T54 PO (16:12)
[2025-06-11] MEDS ORDERED: METO1TAB7 PO (16:12)
[2025-06-11] MEDS ORDERED: HOME MED LIST COMPLETE! XX SCH (16:15)
[2025-06-11 17:52] VITALS: BP 126/85; TEMP 97.1; O2SAT 96
[2025-06-11 17:54] LABS: CK-MB VALUE MASS 2.5 NG/ML (<3.6)
[2025-06-11] MEDS: METOPROLOL TART 25 MG TABLET PO SCH (17:55)
[2025-06-11 18:10] LABS: CPK CREATINE PHOSPHOKINASE 58.0 U/L (46-171); MB/CK RELATIVE INDEX 4.31 (< OR =4)
[2025-06-11 19:40] VITALS: BP 125/80; TEMP 97; O2SAT 94
[2025-06-11] MEDS: APIXABAN 5 MG TAB PO SCH (20:26)
[2025-06-11] MEDS: DAPAGLIFLOZIN PROPANEDIOL 10 MG TABLET PO SCH (20:26)
[2025-06-11 23:36] VITALS: BP 120/75; TEMP 97; O2SAT 96
[2025-06-12] VITALS (8 sets, daily range): BP systolic 102–134; BP diastolic 60–75; TEMP 97.2–98; O2SAT 93–96
[2025-06-12 05:57] LABS: BASO # 0.0 10^3/uL (0.0-0.2); BASO % 0.5 % (0.0-1.0); EOS # 0.2 10^3/uL (0.0-0.5); EOS % 1.9 % (0.0-3.0); LYMPH # 2.2 10^3/uL (1.5-5.0); LYMPH % 26.3 % (24.0-44.0); MONO # 0.8 10^3/uL (0.0-0.8); MONO % 9.6 % (2.0-8.0); NEUTROPHILS # 5.1 10^3/uL (1.5-8.5); NEUTROPHILS % 61.3 % (36.0-66.0); PLATELET COUNT, AUTOMATED 141 10^3/uL (150-450)
[2025-06-12 06:14] LABS: CALCIUM LEVEL 8.8 MG/DL (8.3-10.6); CARBON DIOXIDE LEVEL 25.0 MMOL/L (20-31); CHLORIDE LEVEL 105.0 MMOL/L (98-107); CREATININE FOR GFR 1.97 MG/DL (0.70-1.30); GLOMERULAR FILTRATION RATE 32.7 (>35); MAGNESIUM LEVEL 1.7 MG/DL (1.8-2.4); POTASSIUM SERUM 4.2 MMOL/L (3.5-5.1); SODIUM LEVEL 143.0 MMOL/L (136-145)
[2025-06-12] MEDS: MAG SULF 1GM/100ML (MAG RUN) 1 GM in IV 1 EA IV ONE (07:00)
[2025-06-12] MEDS: PRAVASTATIN 20 MG TAB PO SCH (08:17)
[2025-06-12] MEDS: OMEPRAZOLE 20MG CAP PO SCH (08:17)
[2025-06-12] MEDS: MULTIVITAMINS/MINERALS THERAP 1 TAB PO SCH (08:17)
[2025-06-12] MEDS: traZODone 50 MG TAB PO PRN (20:05)
[2025-06-13] VITALS (7 sets, daily range): BP systolic 110–141; BP diastolic 60–76; TEMP 97.2–97.5; O2SAT 96–98
[2025-06-13 06:07] LABS: BASO # 0.0 10^3/uL (0.0-0.2); BASO % 0.6 % (0.0-1.0); EOS # 0.5 10^3/uL (0.0-0.5); EOS % 6.8 % (0.0-3.0); LYMPH # 1.5 10^3/uL (1.5-5.0); LYMPH % 21.6 % (24.0-44.0); MONO # 0.6 10^3/uL (0.0-0.8); MONO % 9.3 % (2.0-8.0); NEUTROPHILS # 4.2 10^3/uL (1.5-8.5); NEUTROPHILS % 61.3 % (36.0-66.0); PLATELET COUNT, AUTOMATED 134 10^3/uL (150-450)
[2025-06-13 06:29] LABS: CALCIUM LEVEL 8.7 MG/DL (8.3-10.6); CARBON DIOXIDE LEVEL 24.0 MMOL/L (20-31); CHLORIDE LEVEL 108.0 MMOL/L (98-107); CREATININE FOR GFR 1.66 MG/DL (0.70-1.30); GLOMERULAR FILTRATION RATE 40.2 (>35); MAGNESIUM LEVEL 1.9 MG/DL (1.8-2.4); POTASSIUM SERUM 4.5 MMOL/L (3.5-5.1); SODIUM LEVEL 146.0 MMOL/L (136-145)
[2025-06-13] MEDS: TORSEMIDE 20 MG TAB PO SCH (10:00)
[2025-06-14 00:07] VITALS: BP 146/78; TEMP 97.4; O2SAT 93
[2025-06-14 03:34] VITALS: BP 155/87; TEMP 97.6; O2SAT 96
[2025-06-14 05:38] LABS: BASO # 0.0 10^3/uL (0.0-0.2); BASO % 0.5 % (0.0-1.0); EOS # 0.5 10^3/uL (0.0-0.5); EOS % 6.5 % (0.0-3.0); LYMPH # 2.0 10^3/uL (1.5-5.0); LYMPH % 24.5 % (24.0-44.0); MONO # 0.8 10^3/uL (0.0-0.8); MONO % 9.8 % (2.0-8.0); NEUTROPHILS # 4.6 10^3/uL (1.5-8.5); NEUTROPHILS % 58.3 % (36.0-66.0); PLATELET COUNT, AUTOMATED 160 10^3/uL (150-450)
[2025-06-14 06:03] LABS: CALCIUM LEVEL 8.8 MG/DL (8.3-10.6); CARBON DIOXIDE LEVEL 28.0 MMOL/L (20-31); CHLORIDE LEVEL 106.0 MMOL/L (98-107); CREATININE FOR GFR 1.78 MG/DL (0.70-1.30); GLOMERULAR FILTRATION RATE 36.9 (>35); MAGNESIUM LEVEL 1.7 MG/DL (1.8-2.4); POTASSIUM SERUM 4.1 MMOL/L (3.5-5.1); SODIUM LEVEL 147.0 MMOL/L (136-145)
[2025-06-14 08:00] VITALS: BP 151/98; TEMP 96.4; O2SAT 96
[2025-06-14] MEDS ORDERED: METO1TAB7 PO (09:29)
[2025-06-14] MEDS ORDERED: MAGN400T33 PO (09:29)
[2025-06-14] MEDS ORDERED: FARX1TAB3 PO (09:31)
[2025-06-14 09:56] VITALS: BP 148/70
[2025-06-14] MEDS: MAG SULF 1GM/100ML (MAG RUN) 1 GM in IV 1 EA IV ONE (09:57)
[2025-06-14 10:01] VITALS: BP 148/70
[2025-06-14] MEDS: MAGNESIUM OXIDE 400 MG TAB PO SCH (10:02)
== END 2025-06-14 12:12 | disposition home or self-care (01) | DRG 280 ==
LOC: M ED 08:17 → M ED INP 14:52 → M PCU 17:41
PROVIDERS: ADMIT General Practice; ATTEND Internal Medicine Nephrology
DX: I13.0 Hypertensive heart and chronic kidney disease with heart failure and stage 1 through stage 4 chronic kidney disease, or unspecified chronic kidney disease (principal); I21.A1 Myocardial infarction type 2; I50.23 Acute on chronic systolic (congestive) heart failure; N17.9 Acute kidney failure, unspecified; J98.11 Atelectasis; I48.21 Permanent atrial fibrillation; K50.90 Crohn's disease, unspecified, without complications; E87.0 Hyperosmolality and hypernatremia; I27.20 Pulmonary hypertension, unspecified; E78.5 Hyperlipidemia, unspecified; J43.9 Emphysema, unspecified; M40.204 Unspecified kyphosis, thoracic region; K44.9 Diaphragmatic hernia without obstruction or gangrene; N18.2 Chronic kidney disease, stage 2 (mild); Z92.3 Personal history of irradiation; Z79.01 Long term (current) use of anticoagulants; Z85.46 Personal history of malignant neoplasm of prostate; Z79.899 Other long term (current) drug therapy